=== PATIENT | female | born 1955 | race Caucasian/White ===

== ENCOUNTER 2021-10-23 02:11 | Observation (INO) | payer BC ==
[2021-10-23 02:27] VITALS: BMI 16.6
[2021-10-23] MEDS ORDERED: ONDANSETRON 4 MG/2 ML VIAL IVPUSH ONE (03:10)
[2021-10-23] MEDS ORDERED: morphine CARPU-JECT 4 MG/1 ML DISP.SYRIN IVPUSH ONE (03:10)
[2021-10-23] MEDS ORDERED: ONDANSETRON 4 MG/2 ML VIAL ONE (03:57)
[2021-10-23] MEDS ORDERED: morphine SULFATE 4 MG/ML VIAL ONE (03:57)
[2021-10-23] MEDS: LACTATED RINGERS SOLUTION 1,000 ML/1,000 ML INFUS.BAG IV SCH (04:31)
[2021-10-23 04:49] LABS: BASO % 0.2 % (0-2.0); EOS % 0.4 % (0-4.5); HEMATOCRIT 36.3 % (32.4-45.2); HEMOGLOBIN 12.2 GM/dL (10.7-15.3); MCH 30.9 pg (25.7-33.7); MCHC 33.5 g/dl (32.0-36.0); MEAN CELL VOLUME 92.2 fl (80-96); MEAN PLT VOLUME 8.8 fl (7.5-11.1); MONO % 7.6 % (3.8-10.2); NEUT % 47.8 % (42.8-82.8); PLATELET COUNT 92 10^3/uL (134-434); RBC 3.94 M/mm3 (3.60-5.2); RDW 21.4 % (11.6-15.6); WHITE BLOOD COUNT 6.7 K/mm3 (4.0-10.0)
[2021-10-23 05:11] LABS: ALBUMIN 3.6 g/dl (3.4-5.0); CALCIUM 9.1 mg/dL (8.5-10.1)
[2021-10-23 05:12] LABS: BLOOD UREA NITROGEN 13.2 mg/dL (7-18); MAGNESIUM 2.1 mg/dL (1.8-2.4)
[2021-10-23 05:14] LABS: CREATININE 0.5 mg/dL (0.55-1.3)
[2021-10-23 05:16] LABS: BILIRUBIN,TOTAL 0.6 mg/dL (0.2-1); TOT PROT 6.4 g/dl (6.4-8.2)
[2021-10-23 06:39] LABS: ANISOCYTOSIS 0; MACROCYTOSIS 0; ROULEAU 1+
[2021-10-23 06:55] LABS: EPI CELLS 27 /uL (0-25.1); HYALINE CASTS 3 /uL (0-3.1); URINE APPEARANCE TURBID; URINE BACTERIA 19 /uL (0-1359); URINE BILIRUBIN NEGATIVE (NEGATIVE); URINE COLOR YELLOW; URINE GLUCOSE (UA) NEGATIVE (NEGATIVE); URINE KETONE NEGATIVE (NEGATIVE); URINE LEUK ESTERASE TRACE (NEGATIVE); URINE NITRITE NEGATIVE (NEGATIVE); URINE PROTEIN 1+ (NEGATIVE); URINE RBC 5 /uL (0-23.9); URINE WBC 19 /uL (0-25.8)
[2021-10-23] MEDS ORDERED: morphine CARPU-JECT 2 MG/1 ML DISP.SYRIN IVPUSH ONE (07:03)
[2021-10-23] MEDS ORDERED: ONDANSETRON 4 MG/2 ML VIAL IM PRN (09:24)
[2021-10-23] MEDS ORDERED: LORazepam 2 MG/ML SDV VIAL IVPUSH ONE (10:00)
[2021-10-23] MEDS ORDERED: PATIENT'S OWN MEDICATION (NON-FORMULARY) (Lifitegrast [Xiidra] 1 EACH Droperette) OP SCH (10:00)
[2021-10-23] MEDS ORDERED: ENOXAPARIN NA (PORCINE) 40 MG/0.4 ML DISP.SYRIN SQ SCH (10:00)
[2021-10-23] MEDS ORDERED: ATOVAQUONE 750 MG/5 ML (UNIT-DOSE PACKAGING) PO SCH (11:00)
[2021-10-23] MEDS ORDERED: valACYclovir HCL 500 MG TABLET (FP) PO SCH (11:00)
[2021-10-23] MEDS ORDERED: SODIUM CHLORIDE 1,000 ML IV SCH (11:00)
[2021-10-23] MEDS ORDERED: PATIENT'S OWN MEDICATION (NON-FORMULARY) (Sumatriptan Succinate [Sumatriptan Succinate] 10 PO SCH (11:15)
[2021-10-23] MEDS: FOLIC ACID 1 MG TABLET (FP) PO SCH (11:35)
[2021-10-23] MEDS: APIXABAN 5 MG TABLET PO SCH ×2 (11:35→21:21)
[2021-10-23] MEDS: POLYETHYLENE GLYCOL (HEALTHYLAX) 3350 17 GM PACKET PO SCH ×2 (11:35→21:20)
[2021-10-23] MEDS ORDERED: SUMAtriptan SUCCINATE 50 MG TABLET PO PRN (11:40)
[2021-10-23] MEDS: FLUTICASONE/SALMETEROL 100 MCG/50 MCG DISKUS IH SCH ×2 (11:43→21:21)
[2021-10-23] MEDS: PANTOPRAZOLE SODIUM 40 MG VIAL IVPUSH SCH (11:44)
[2021-10-23] MEDS ORDERED: DOCUSATE SODIUM 100 MG CAPSULE (FP) PO PRN (12:00)
[2021-10-23] MEDS: ATOVAQUONE 750 MG/5 ML (UNIT-DOSE PACKAGING) PO SCH (12:35)
[2021-10-23] MEDS: valACYclovir HCL 500 MG TABLET (FP) PO SCH (12:36)
[2021-10-24] MEDS ORDERED: ACETAMINOPHEN 1000 MG/100 ML BAG IVPB ONE (01:15)
[2021-10-24] MEDS: LACTATED RINGERS SOLUTION 1,000 ML/1,000 ML INFUS.BAG IV SCH ×2 (06:53→12:28)
[2021-10-24 09:17] LABS: BASO % 0.4 % (0-2.0); HEMATOCRIT 35.9 % (32.4-45.2); HEMOGLOBIN 12.2 GM/dL (10.7-15.3); LYMPH % 38.2 % (8-40); MCH 31.3 pg (25.7-33.7); MCHC 33.9 g/dl (32.0-36.0); MEAN CELL VOLUME 92.3 fl (80-96); MEAN PLT VOLUME 8.6 fl (7.5-11.1); MONO % 6.7 % (3.8-10.2); NEUT % 54.7 % (42.8-82.8); PLATELET COUNT 94 10^3/uL (134-434); RBC 3.89 M/mm3 (3.60-5.2); RDW 21.5 % (11.6-15.6); WHITE BLOOD COUNT 8.5 K/mm3 (4.0-10.0)
[2021-10-24 09:49] LABS: ALBUMIN 3.7 g/dl (3.4-5.0); BLOOD UREA NITROGEN 10.4 mg/dL (7-18); CALCIUM 9.1 mg/dL (8.5-10.1); MAGNESIUM 2.1 mg/dL (1.8-2.4); PHOSPHOROUS 3.4 mg/dL (2.5-4.9)
[2021-10-24 09:50] LABS: BILIRUBIN,TOTAL 0.9 mg/dL (0.2-1); TOT PROT 6.3 g/dl (6.4-8.2)
[2021-10-24 09:52] LABS: CREATININE 0.6 mg/dL (0.55-1.3)
[2021-10-24] MEDS ORDERED: POTASSIUM CHLORIDE TABS 20 MEQ TABLET.ER (FP) PO ONE (09:57)
[2021-10-24] MEDS ORDERED: Methylnaltrexone Bromide 12 MG/0.6 ML KIT SQ SCH ×2 (10:00→12:30)
[2021-10-24] MEDS ORDERED: clonazePAM 0.5 MG TABLET PO SCH (10:00)
[2021-10-24] MEDS: POLYETHYLENE GLYCOL (HEALTHYLAX) 3350 17 GM PACKET PO SCH ×2 (10:13→21:32)
[2021-10-24] MEDS: APIXABAN 5 MG TABLET PO SCH ×2 (10:14→21:32)
[2021-10-24] MEDS: OLANZapine 10 MG TABLET PO SCH (10:15)
[2021-10-24] MEDS: ATOVAQUONE 750 MG/5 ML (UNIT-DOSE PACKAGING) PO SCH (10:15)
[2021-10-24] MEDS: FOLIC ACID 1 MG TABLET (FP) PO SCH (10:15)
[2021-10-24] MEDS: FLUTICASONE/SALMETEROL 100 MCG/50 MCG DISKUS IH SCH ×3 (10:19→21:32)
[2021-10-24] MEDS: valACYclovir HCL 500 MG TABLET (FP) PO SCH (10:19)
[2021-10-24] MEDS: PANTOPRAZOLE SODIUM 40 MG VIAL IVPUSH SCH (10:38)
[2021-10-24] MEDS ORDERED: ACETAMINOPHEN 1000 MG/100 ML BAG IVPB PRN ×2 (14:28→15:20)
[2021-10-24] MEDS: ACETAMINOPHEN 1000 MG/100 ML BAG IVPB PRN (16:56)
[2021-10-24] MEDS: clonazePAM 0.5 MG TABLET PO SCH (21:32)
[2021-10-25] MEDS ORDERED: MELATONIN 5 MG TABLETS PO ONE (02:21)
[2021-10-25] MEDS: LACTATED RINGERS SOLUTION 1,000 ML/1,000 ML INFUS.BAG IV SCH ×2 (02:23→18:13)
[2021-10-25] MEDS: ATOVAQUONE 750 MG/5 ML (UNIT-DOSE PACKAGING) PO SCH (08:06)
[2021-10-25] MEDS: ACETAMINOPHEN 1000 MG/100 ML BAG IVPB PRN (08:20)
[2021-10-25 09:28] LABS: HEMATOCRIT 33.9 % (32.4-45.2); HEMOGLOBIN 11.3 GM/dL (10.7-15.3); MCHC 33.4 g/dl (32.0-36.0); MEAN CELL VOLUME 92.7 fl (80-96); MEAN PLT VOLUME 9.1 fl (7.5-11.1); PLATELET COUNT 88 10^3/uL (134-434); RBC 3.66 M/mm3 (3.60-5.2); RDW 21.2 % (11.6-15.6)
[2021-10-25 09:38] LABS: INR 1.26 (0.83-1.09); PROTHROMBIN TIME (PATIENT) 14.5 SEC (9.7-13.0)
[2021-10-25 09:57] LABS: ALBUMIN 3.3 g/dl (3.4-5.0); BLOOD UREA NITROGEN 7.4 mg/dL (7-18); CALCIUM 8.5 mg/dL (8.5-10.1)
[2021-10-25 10:00] LABS: CREATININE 0.5 mg/dL (0.55-1.3)
[2021-10-25 10:01] LABS: BILIRUBIN,TOTAL 1.2 mg/dL (0.2-1)
[2021-10-25 10:02] LABS: TOT PROT 5.8 g/dl (6.4-8.2)
[2021-10-25] MEDS: FOLIC ACID 1 MG TABLET (FP) PO SCH (10:08)
[2021-10-25] MEDS: OLANZapine 10 MG TABLET PO SCH (10:08)
[2021-10-25] MEDS: PANTOPRAZOLE SODIUM 40 MG VIAL IVPUSH SCH (10:09)
[2021-10-25] MEDS: clonazePAM 0.5 MG TABLET PO SCH ×2 (10:09→21:35)
[2021-10-25] MEDS: APIXABAN 5 MG TABLET PO SCH ×2 (10:09→21:35)
[2021-10-25] MEDS: valACYclovir HCL 500 MG TABLET (FP) PO SCH (10:09)
[2021-10-25] MEDS: POLYETHYLENE GLYCOL (HEALTHYLAX) 3350 17 GM PACKET PO SCH ×2 (10:09→21:34)
[2021-10-25] MEDS: FLUTICASONE/SALMETEROL 100 MCG/50 MCG DISKUS IH SCH ×2 (10:15→21:39)
[2021-10-26] MEDS ORDERED: POTASSIUM CHLORIDE ORAL LIQUID 20 MEQ/15 ML PO ONE ×2 (06:16→08:00)
[2021-10-26] MEDS: ATOVAQUONE 750 MG/5 ML (UNIT-DOSE PACKAGING) PO SCH (07:43)
[2021-10-26] MEDS: LACTATED RINGERS SOLUTION 1,000 ML/1,000 ML INFUS.BAG IV SCH (07:47)
[2021-10-26] MEDS: POLYETHYLENE GLYCOL (HEALTHYLAX) 3350 17 GM PACKET PO SCH ×2 (10:02→21:10)
[2021-10-26] MEDS: valACYclovir HCL 500 MG TABLET (FP) PO SCH (10:02)
[2021-10-26] MEDS: clonazePAM 0.5 MG TABLET PO SCH ×2 (10:03→21:05)
[2021-10-26] MEDS: OLANZapine 10 MG TABLET PO SCH (10:03)
[2021-10-26] MEDS: APIXABAN 5 MG TABLET PO SCH ×2 (10:03→21:05)
[2021-10-26] MEDS: FOLIC ACID 1 MG TABLET (FP) PO SCH (10:03)
[2021-10-26] MEDS: FLUTICASONE/SALMETEROL 100 MCG/50 MCG DISKUS IH SCH ×2 (10:04→21:04)
[2021-10-26] MEDS: PANTOPRAZOLE SODIUM 40 MG VIAL IVPUSH SCH (10:18)
[2021-10-26 10:40] LABS: MAGNESIUM 1.9 mg/dL (1.8-2.4)
[2021-10-26 10:43] LABS: CREATININE 0.6 mg/dL (0.55-1.3)
[2021-10-26 10:46] LABS: BLOOD UREA NITROGEN 8.7 mg/dL (7-18); CALCIUM 8.7 mg/dL (8.5-10.1)
[2021-10-26 20:17] VITALS: RESP 18
[2021-10-27] MEDS: LACTATED RINGERS SOLUTION 1,000 ML/1,000 ML INFUS.BAG IV SCH (08:00)
[2021-10-27] MEDS: ATOVAQUONE 750 MG/5 ML (UNIT-DOSE PACKAGING) PO SCH (08:01)
[2021-10-27 08:03] VITALS: BP 131/72; PULSE 102; TEMP 98
[2021-10-27] MEDS: POLYETHYLENE GLYCOL (HEALTHYLAX) 3350 17 GM PACKET PO SCH (10:19)
[2021-10-27] MEDS: clonazePAM 0.5 MG TABLET PO SCH (10:24)
[2021-10-27] MEDS: valACYclovir HCL 500 MG TABLET (FP) PO SCH (10:24)
[2021-10-27] MEDS: OLANZapine 10 MG TABLET PO SCH (10:24)
[2021-10-27] MEDS: FOLIC ACID 1 MG TABLET (FP) PO SCH (10:24)
[2021-10-27] MEDS: APIXABAN 5 MG TABLET PO SCH (10:24)
[2021-10-27] MEDS: PANTOPRAZOLE SODIUM 40 MG VIAL IVPUSH SCH (10:25)
[2021-10-27] MEDS: FLUTICASONE/SALMETEROL 100 MCG/50 MCG DISKUS IH SCH (10:25)
== END 2021-10-27 11:17 | disposition home or self-care (01) ==
LOC: JER 02:11 → INTOOBSV 08:04 → JERBED 08:04 → J6S 09:58
PROVIDERS: ADMIT Internal Medicine; ATTEND Internal Medicine
PROC: 3E033NZ Introduction of Analgesics, Hypnotics, Sedatives into Peripheral Vein, Percutaneous Approach (ICD-10-PCS; principal; 2021-10-23)
PROC: 3E023GC Introduction of Other Therapeutic Substance into Muscle, Percutaneous Approach (ICD-10-PCS; 2021-10-23)
PROC: 3E033GC Introduction of Other Therapeutic Substance into Peripheral Vein, Percutaneous Approach (ICD-10-PCS; 2021-10-23)
DX: K59.00 Constipation, unspecified (principal); E87.6 Hypokalemia; C85.90 Non-Hodgkin lymphoma, unspecified, unspecified site; F41.8 Other specified anxiety disorders; J44.9 Chronic obstructive pulmonary disease, unspecified; G43.909 Migraine, unspecified, not intractable, without status migrainosus; Z92.21 Personal history of antineoplastic chemotherapy; K85.90 Acute pancreatitis without necrosis or infection, unspecified; K86.0 Alcohol-induced chronic pancreatitis; Z88.2 Allergy status to sulfonamides; R09.3 Abnormal sputum; Z88.0 Allergy status to penicillin
CPT/HCPCS: 36415; 74177-TC; 80048; 80053; 81003; 82150; 82977; 83605; 83690; 83735; 84100; 84439; 84443; 84478; 85025; 85027; 85610; 86140; 87086; 93005; 93010; 96372; 96374; 96375; 96376; 97116-GP; 97161-GP; 99285-25; C9803-CS; G0378; Q9967; U0003; U0005